=== PATIENT | female | born 1940 | race Caucasian/White ===

== ENCOUNTER 2017-04-30 13:46 | Outpatient (CLI) | payer MEDICARE, BC ==
[2017-04-30 15:15] LABS: #Eosinphils 0.1 thou/uL (0.0-0.7); #Lymphocytes 1.1 thou/uL (1.20-3.40); #Monocytes 0.3 thou/uL (0.11-0.59); #Neutrophils 5.7 thou/uL (1.40-6.50); %Basophils 0.2 % (0.0-1.0); %Eosinophils 1.1 % (0.0-10.0); %Lymphocytes 14.9 % (21.0-51.0); %Monocytes 4.1 % (0.0-10.0); %Neutrophils 79.7 % (42.0-75.0); Mean Corpuscular HGB CONC 32.9 g/dL (32.0-36.0); Mean Corpuscular Hemoglobin 31.8 pg (27.0-31.0); Mean Corpuscular Volume 96.7 fl (81.0-99.0); Mean Platelet Volume 6.9 fL (7.4-10.4); Platelet Count 248 thou/uL (130-400); RBC Distribution Width 12.5 % (11.5-14.5); Red Blood Cell (RBC) Count 4.08 mill/uL (4.20-5.40); White Blood Cell (WBC) Count 7.1 thou/uL (4.8-10.8)
[2017-04-30 15:22] LABS: INR-International Normal Ratio 1.1
[2017-04-30 15:23] LABS: PTT 33.8 SEC (22.9-36.1)
[2017-04-30 15:41] LABS: Anion Gap 13 mmol/L (10-20); BUN (Urea Nitrogen) 17 mg/dL (9.8-20.1); Calc. Creatinine Clearance 0 mL/min (70-130); Calcium 9.1 mg/dL (7.8-10.44); Carbon Dioxide 24 mmol/L (23-31); Chloride 108 mmol/L (98-107); Estimated GFR-MDRD 45; Glucose 128 mg/dL (83-110); Potassium 4.6 mmol/L (3.5-5.1); Sodium 140 mmol/L (136-145)
--- NOTE | 2017-04-30 15:42 | RAD ---
PA AND LATERAL CHEST: History: Pre-operative evaluation. FINDINGS: Comparison is made with exam of 02-12-17. The heart size is normal. The lungs are expanded without focal areas of consolidation, pneumothorax o r pleural effusions. There are degenerative changes in the spine. Left shoulder arthroplasty remains in place. IMPRESSION: Stable exam. No acute process. POS: [facility]
[2017-04-30 15:51] LABS: Bilirubin Negative (Negative); Blood, Urine Negative (Negative); Clarity CLEAR (Clear); Glucose, Urine (Dipstick) Negative (Negative); Leukocyte Negative (Negative); Nitrite Negative (Negative); Protein, Urine (Dipstick) Negative (Neg-Trace); Specific Gravity, Urine 1.019 (1.002-1.036)
[2017-04-30 15:56] LABS: Bacteria/HPF None Seen HPF (None Seen); Hyaline Casts/LPF 0-3 HYALINE CAST LPF (0-3 Hyaline); RBC/HPF 0-3 HPF (0-3); Squamous Epithelial 0-3 HPF (0-3); WBC/HPF None Seen HPF (0-3)
--- NOTE | 2017-05-08 19:33 | EKG ---
Test Reason : Blood Pressure : / mmHG Vent. Rate : 057 BPM Atrial Rate : 057 BPM P-R Int : 180 ms QRS Dur : 080 ms QT Int : 422 ms P-R-T Axes : 048 075 058 degrees QTc Int : 410 ms Sinus bradycardia with Premature supraventricular complexes Septal infarct , age undetermined Abnormal ECG No previous ECGs available Confirmed by KERVIN CH (2) on 05/08/2017 7:33:01 PM Referred By: ELSY Confirmed By:KERVIN CH
== END 2017-04-30 13:47 | disposition home or self-care (01) ==
LOC: LABBT 13:46
PROVIDERS: ATTEND Orthopaedic Surgery
DX: Z01.818 Encounter for other preprocedural examination (principal); M17.11 Unilateral primary osteoarthritis, right knee
CPT/HCPCS: 71046; 80048; 81001; 85025; 85610; 85730; 86850; 86900; 86901; 87081; 93005; 93010

== ENCOUNTER 2017-05-06 06:29 | Inpatient (IN) | payer MEDICARE, BC ==
[2017-04-30 14:07] VITALS: BMI 21.8
[2017-05-06] MEDS ORDERED: CEFAZOLIN/Water 2 GM/20 ML SYRINGE ONE ×2 (07:19→16:34)
[2017-05-06] MEDS ORDERED: Tranexamic Acid 1,000 MG/100 ML BAG ONE ×2 (07:19→11:07)
[2017-05-06] MEDS ORDERED: Fentanyl 100 MCG/2 ML VIAL ONE ×3 (08:09→11:54)
[2017-05-06] MEDS ORDERED: Ropivacaine 0.2% HCl/PF 20 ML ONE (08:09)
[2017-05-06] MEDS ORDERED: Midazolam HCl 2 mg/2 ml Vial ONE (08:09)
[2017-05-06] MEDS ORDERED: traMADol HCl 50 MG TAB PO PRN ×3 (08:38→08:44)
[2017-05-06] MEDS ORDERED: Promethazine HCl 25 MG/ML VIAL IM PRN ×2 (08:38→08:44)
[2017-05-06] MEDS ORDERED: Ondansetron HCl/PF 4 MG/2 ML Vial IVP PRN ×2 (08:38→08:44)
[2017-05-06] MEDS ORDERED: Ketorolac Tromethamine 30 MG/ML VIAL IVP PRN (08:38)
[2017-05-06] MEDS ORDERED: Zolpidem Tartrate 5 MG TAB PO PRN ×2 (08:38→08:44)
[2017-05-06] MEDS ORDERED: Ropivacaine HCl/PF 250 ML in Premix Bag 1 BAG NERVE BLCK SCH (08:38)
[2017-05-06] MEDS ORDERED: Fentanyl 100 MCG/2 ML VIAL IV PRN (08:40)
[2017-05-06] MEDS ORDERED: diphenhydrAMINE 25 MG CAP PO PRN (08:44)
[2017-05-06] MEDS ORDERED: Acetaminophen 325 MG TAB PO PRN (08:44)
[2017-05-06] MEDS ORDERED: Fentanyl 100 MCG/2 ML VIAL SLOW IVP PRN ×2 (08:44)
[2017-05-06] MEDS ORDERED: Tranexamic Acid 1,000 MG in Sodium Chloride 0.9% 100 ML IVPB SCH (08:45)
[2017-05-06] MEDS ORDERED: Non-Formulary Item 1 EACH (Budesonide-Formoterol [Symbicort 80-4.5] 2 PUFF) INH SCH (09:00)
[2017-05-06] MEDS ORDERED: Aspirin 81 mg Enteric Coated Tablet PO SCH (09:00)
--- NOTE | 2017-05-06 12:52 | OP ---
PREOPERATIVE DIAGNOSIS: Degenerative joint disease of the right knee. POSTOPERATIVE DIAGNOSIS: Degenerative joint disease of the right knee. SURGEON: Singh Magaña M.D. SLOT SERVICE SPECIALIST: Klaus Alex PA-C. BLOOD LOSS: Minimal. SPECIMEN: None. DRAINS: None. COMPLICATIONS: None. IMPLANTS USED: [employer] 4 femur, 4 tibia, 11 mm CSX3 polyethylene, and A29. PROCEDURE IN DETAIL: After informed consent was obtained in the preoperative holding area. The kingsley ent was taken to the operative suite where general anesthesia was induced. Once adequate level of ge neral anesthesia was obtained, the patient was positioned and a well-padded tourniquet was placed jocelyn und the right proximal thigh. The right lower extremity was then prepped and draped in the usual lis rile fashion. Prior to exsanguination, a time out was called and all members of the surgical team ag anthony upon site, surgeon, and patient. The extremity was then exsanguinated and the tourniquet was ra ised. A midline longitudinal incision was then made directly over the patella extending two fingerbr eadths above the superior pole of the patella and two fingerbreadths inferior to the inferior patella r pole of the patella. Deeper subcutaneous layers were dissected sharply and local bleeding was cont rolled with Bovie electrocautery. A quad tendon longitudinal split was then made sharply and a media n parapatellar arthrotomy was carried out both sharp and with Bovie electrocautery, carried down to o ne fingerbreadth medial to the tibial tubercle. The knee was then placed into flexion and the patell a was everted nicely, and a copious fat pad ectomy was performed allowing for greater exposure of the tibia. The computer-assisted distal femoral fiducial was then placed and pinned firmly, and the dis daria femoral cutting guide was pinned firmly into place. The oscillating saw was then used to remove the appropriate amount of bone. The 4-in-1 cutting block was then placed on the distal femur and the oscillating saw was used to remove the appropriate amount of bone off of the anterior, posterior, an d chamfer cuts. After completion of bone cuts, the anterior cruciate ligament was resected sharply a nd the posterior cruciate ligament retractor was placed and the tibia was subluxed for better exposur e. Partial meniscectomies were carried out, and the tibial computer-assisted fiducial was pinned, an d the cutting guide was placed. Oscillating saw was then used to remove the bone with Hohmann retrac tors used to take care and protect the collateral ligaments. After the tibial resection was performe d, a laminar retail mortgage banker was placed in between the freshened bone cuts. The knee placed at 90 degrees a nd further bilateral meniscectomies were carried out, and the curved osteotome and curettage was used to remove any excess bone spurs in the posterior compartment. Exparel was then injected into the po sterior capsule, arcelia-articular synovia, pre-patella synovia, and musculature surrounding the capsule . The trial femoral component, tibial baseplate were placed with the appropriate polyethylene trial insert with an appropriate polyethylene spacer and patellar button. The knee was taken through full range of motion with flexion and extension from 0-90 degrees and patellar broach squarely in the tro chlea without any squinting or subluxation noted. The knee was also stable to varus and valgus stres sing at 0, 15, 45, and 90 degrees of flexion. The drawer was negative. All trial components were the n removed and the keel punch was used to provide the appropriate defect in the tibia with a mallet. The freshened bone cuts were copiously irrigated with pulsatile lavage of about 1-1/2 liters to remov e all excess debris. The freshened bone cuts were then dried and with suction and lap sponge. The k nee was placed in flexion and retractors were placed to provide access to all bone cuts. Tobramycin impregnated methyl methacrylate cement was then placed on the freshened bone cuts and implants which were malleted firmly into place. Curettage and [place] elevators were used to remove any excess bone c ement. The knee was placed into full extension and the patellar button was placed under compression, and the cement was allowed to cure. Once completed, the components were again taken through full ra nge of motion and copious irrigation of the knee was carried out with another liter of normal saline. All components were inspected fully with full range of motion and varus and valgus stressing. There was no laxity noted and full extension was observed clinically. Primary closure was accomplished wi th #2 interrupted Vicryl stitch of the arthrotomy defect. This was oversewn with a #2 running Quill barbed stitch. The gravitational platelet system was then injected into the arthrotomy prior to clos ure. The subcutaneous layer was then closed with a running 0 barbed Monocryl stitch and skin closure accomplished with a running subcuticular 3-0 Monocryl barbed Quill stitch and augmented with cement on the skin. Tourniquet was lowered. Good spontaneous return of distal pulses was noted clinically and a sterile dressing was applied to the incision. The procedure was terminated without any complic ations. The patient was awakened in the operative suite and the tourniquet was removed, and the kingsley ent was taken to the recovery room in stable condition.
--- NOTE | 2017-05-06 13:23 | RAD ---
RIGHT KNEE TWO VIEWS: HISTORY: Arthritis. Right knee replacement. FINDINGS: Total knee prosthesis is in place. No perihardware lucency is apparent. There is soft tissue gas in the suprapatellar bursa and anterior soft tissues. IMPRESSION: Right knee prosthesis is in good radiographic position. POS: [facility]
[2017-05-06] MEDS ORDERED: Ropivacaine 0.5% HCl/PF (150 MG/30 ML VIAL) ONE (14:58)
[2017-05-06] MEDS ORDERED: CEFAZOLIN/Water 2 GM/20 ML SYRINGE SLOW IVP SCH ×2 (15:00→19:00)
[2017-05-06] MEDS ORDERED: ePHEDrine/0.9% NaCl/PF SYRINGE 50 mg/10 ml ONE (15:39)
[2017-05-06] MEDS ORDERED: Ondansetron HCl/PF 4 MG/2 ML Vial ONE (15:39)
[2017-05-06] MEDS ORDERED: Dexamethasone 20 MG/5 ML VIAL ONE (15:39)
[2017-05-06] MEDS ORDERED: Propofol 200 MG/20 ML VIAL ONE (15:39)
[2017-05-06] MEDS: Sodium Chloride 0.9% 1,000 ML IV SCH ×2 (19:59→20:30)
[2017-05-06] MEDS: Atorvastatin Calcium 10 MG TAB PO SCH (20:22)
[2017-05-06] MEDS: Montelukast Sodium 10 mg Tablet PO SCH (20:22)
[2017-05-06] MEDS: Mirtazapine 15 MG TAB PO SCH (20:23)
[2017-05-06] MEDS: Aspirin 325 MG TAB PO SCH ×2 (20:23)
[2017-05-06] MEDS: Ferrous Gluconate 324 MG TAB PO SCH ×2 (20:24)
[2017-05-06] MEDS: Senokot S 8.6-50 MG TAB PO SCH ×2 (20:24)
[2017-05-06] MEDS: HYDROcodone/Acetaminophen 10/325 mg Tablet PO PRN (20:24)
[2017-05-06] MEDS: Amiodarone 200 MG TAB PO SCH (21:21)
[2017-05-06] MEDS: Lisinopril 5 MG TAB PO SCH (21:21)
[2017-05-06] MEDS: Estradiol 1 MG TAB PO SCH (21:21)
[2017-05-06] MEDS: Multivitamin W/ Minerals 1 TAB PO SCH (21:21)
[2017-05-06] MEDS: Fish Oil 1,000 MG CAP PO SCH (21:21)
[2017-05-06] MEDS: Mometasone/Formoterol 120 PUFF INHALER INH SCH (22:06)
[2017-05-07] MEDS: HYDROcodone/Acetaminophen 10/325 mg Tablet PO PRN ×4 (01:01→17:13)
[2017-05-07] MEDS: CEFAZOLIN/Water 2 GM/20 ML SYRINGE SLOW IVP SCH ×2 (01:01→11:37)
[2017-05-07 06:05] LABS: Hemoglobin 11.6 g/dL (12.0-16.0); Mean Corpuscular HGB CONC 32.8 g/dL (32.0-36.0); Mean Corpuscular Hemoglobin 32.1 pg (27.0-31.0); Mean Corpuscular Volume 97.8 fl (81.0-99.0); Mean Platelet Volume 6.6 fL (7.4-10.4); Platelet Count 220 thou/uL (130-400); RBC Distribution Width 12.7 % (11.5-14.5); White Blood Cell (WBC) Count 10.3 thou/uL (4.8-10.8)
[2017-05-07] MEDS: Levothyroxine Sodium 50 MCG TAB PO SCH (06:40)
[2017-05-07] MEDS: Sodium Chloride 0.9% 1,000 ML IV SCH ×2 (06:40→17:47)
[2017-05-07] MEDS: Mometasone/Formoterol 120 PUFF INHALER INH SCH ×2 (07:56→19:38)
[2017-05-07] MEDS: Calcium Carbonate + Vit D 1 TAB PO SCH (08:37)
[2017-05-07] MEDS: Aspirin 325 MG TAB PO SCH ×2 (08:37→20:27)
[2017-05-07] MEDS: Estradiol 1 MG TAB PO SCH (08:37)
[2017-05-07] MEDS: Lisinopril 5 MG TAB PO SCH (08:37)
[2017-05-07] MEDS: Amiodarone 200 MG TAB PO SCH (08:37)
[2017-05-07] MEDS: Senokot S 8.6-50 MG TAB PO SCH ×2 (08:37→20:27)
[2017-05-07] MEDS: Ferrous Gluconate 324 MG TAB PO SCH ×2 (08:38→20:27)
[2017-05-07] MEDS: Fish Oil 1,000 MG CAP PO SCH (08:38)
[2017-05-07] MEDS: Multivitamin W/ Minerals 1 TAB PO SCH (08:38)
[2017-05-07] MEDS ORDERED: Ropivacaine 0.2% 550 ML 550 ML NERVE BLCK SCH (11:16)
[2017-05-07] MEDS: Atorvastatin Calcium 10 MG TAB PO SCH (20:27)
[2017-05-07] MEDS: Mirtazapine 15 MG TAB PO SCH (20:27)
[2017-05-07] MEDS: Montelukast Sodium 10 mg Tablet PO SCH (20:27)
--- NOTE | 2017-05-07 21:22 | PDOC.PN ---
- Subjective Encounter Start Date: 05/07/17 Encounter Start Time: 21:20 Patient seen and examined. No new complaints. No overnight events. Consult for Med mngt. - Objective MAR Reviewed: Yes Vital Signs & Weight: Vital Signs (12 hours) Temp Pulse Resp BP Pulse Ox 05/07/17 20:00 98.0 F 60 16 159/64 H 97 05/07/17 19:38 62 18 96 05/07/17 17:34 98.1 F 62 16 180/66 H 96 05/07/17 12:56 98.1 F 60 16 172/66 H 97 Weight Admit Weight 125 lb Weight 125 lb I&O: 05/06/17 05/07/17 05/08/17 06:59 06:59 06:59 Intake Total 2060 01 Balance 2060 01 Result Diagrams: 05/07/17 05:21 EKG Reviewed by me: Yes (SB) Phys Exam - Physical Examination Constitutional: NAD Respiratory: no wheezing, no rhonchi Cardiovascular: RRR, no rub Gastrointestinal: soft, non-tender, positive bowel sounds Musculoskeletal: no edema Neurological: moves all 4 limbs Dx/Plan - Plan DVT proph w/SCDs IMPRESSION: 1. HTN 2. HLD 3. Par. Afib on anticoagulation 4. CKD 2 5. 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 h/o Colon Ca/Hearing deficits/Mild int Asthma PLAN: * Eliquis on hold * On ASA * Cont Amiodarone * Cont current meds as below * Will follow. Thank you for this consultation. * Full code. DPOA - self/family Review of Systems - Review of Systems Respiratory: negative: Cough, Dry, Shortness of Breath, Hemoptysis, SOB with Excertion, Pleuritic Pain, Sputum, Wheezing Cardiovascular: negative: chest pain, palpitations, orthopnea, paroxysmal nocturnal dyspnea, edema, light headedness - Medications/Allergies Allergies/Adverse Reactions: Allergies Allergy/AdvReac Type Severity Reaction Status Date / Time No Known Allergies Allergy Verified 04/30/17 14:07 Medications: Current Medications Acetaminophen (Tylenol) 650 mg PO Q4H PRN PRN Reason: HANSEN/ T > 101F; Mild Pain (1-3) Hydrocodone Bitart/Acetaminophen ([place] 10/325) 1 tab PO Q4H PRN PRN Reason: Pain (1-3) Last Admin: 05/07/17 17:13 Dose: 1 tab Hydrocodone Bitart/Acetaminophen ([place] 10/325) 2 tab PO Q4H PRN PRN Reason: PAIN (4-6) Last Admin: 05/07/17 11:36 Dose: 2 tab Amiodarone HCl (Cordarone) 200 mg PO DAILY [facility] Last Admin: 05/07/17 08:37 Dose: 200 mg Aspirin (Aspirin) 325 mg PO BID [facility] Last Admin: 05/07/17 20:27 Dose: 325 mg Atorvastatin Calcium (Lipitor) 10 mg PO HS [facility] Last Admin: 05/07/17 20:27 Dose: 10 mg Calcium/Vitamin D (Caltrate 600 + Vit D) 1 tab PO DAILY [facility] Last Admin: 05/07/17 08:37 Dose: 1 tab Diphenhydramine HCl (Benadryl) 25 mg PO Q6H PRN PRN Reason: Itching Estradiol (Estrace) 1 mg PO DAILY [facility] Last Admin: 05/07/17 08:37 Dose: 1 mg Fentanyl (Sublimaze) 50 mcg IV Q1H PRN PRN Reason: BT PAIN Last Admin: 05/07/17 13:27 Dose: 50 mcg Fentanyl (Sublimaze) 50 mcg SLOW IVP Q30MIN PRN PRN Reason: Moderate Pain (4-6) Fentanyl (Sublimaze) 100 mcg SLOW IVP Q1H PRN PRN Reason: Severe Pain (7-10) Ferrous Gluconate (Fergon) 324 mg PO BID [facility] Last Admin: 05/07/17 20:27 Dose: 324 mg Fish Oil (Fish Oil) 2,000 mg PO DAILY [facility] Last Admin: 05/07/17 08:38 Dose: 2,000 mg Sodium Chloride (Normal Saline 0.9%) 1,000 mls @ 100 mls/hr IV .Q10H [facility] Last Admin: 05/07/17 17:47 Dose: Not Given Ropivacaine (Ropivacaine 0.2% 550 Ml) 550 mls @ 0 mls/hr NERVE BLCK INF [facility] PRN Reason: As Directed Last Admin: 05/07/17 13:20 Dose: 550 mls Iron/Minerals/Multivitamins (Theragran M) 1 tab PO DAILY [facility] Last Admin: 05/07/17 08:38 Dose: 1 tab Ketorolac Tromethamine (Toradol) 15 mg IVP Q6H PRN PRN Reason: Moderate Pain (4-6) Stop: 05/09/17 08:39 Levothyroxine Sodium (Synthroid) 50 mcg PO 0600 [facility] Last Admin: 05/07/17 06:40 Dose: 50 mcg Lisinopril (Zestril) 5 mg PO DAILY [facility] Last Admin: 05/07/17 08:37 Dose: 5 mg Mirtazapine (Remeron) 15 mg PO HS [facility] Last Admin: 05/07/17 20:27 Dose: 15 mg Mometasone Furoate/Formoterol Fumar (Dulera 100 Mcg/5 Mcg Inhaler) 2 puff INH BID-RT [facility] Last Admin: 05/07/17 19:38 Dose: 2 puff Montelukast Sodium (Singulair) 10 mg PO QPM [facility] Last Admin: 05/07/17 20:27 Dose: 10 mg Ondansetron HCl (Zofran) 4 mg IVP Q6H PRN PRN Reason: Nausea/Vomiting Promethazine HCl (Phenergan) 12.5 mg IM Q4H PRN PRN Reason: Nausea/Vomiting Senna/Docusate Sodium (Senokot S) 2 tab PO BID [facility] Last Admin: 05/07/17 20:27 Dose: 2 tab Sodium Chloride (Flush - Normal Saline) 10 ml IVF PRN PRN PRN Reason: Saline Flush Tramadol HCl (Ultram) 100 mg PO Q6H PRN PRN Reason: Mild Pain (1-3) Zolpidem Tartrate (Ambien) 5 mg PO HSPRN PRN PRN Reason: Insomnia
[2017-05-08] MEDS: Sodium Chloride 0.9% 1,000 ML IV SCH ×2 (00:16→13:47)
[2017-05-08 05:45] LABS: Hemoglobin 12.2 g/dL (12.0-16.0); Mean Corpuscular Hemoglobin 32.2 pg (27.0-31.0); Mean Corpuscular Volume 97.4 fl (81.0-99.0); Mean Platelet Volume 6.7 fL (7.4-10.4); Platelet Count 223 thou/uL (130-400); RBC Distribution Width 12.6 % (11.5-14.5); Red Blood Cell (RBC) Count 3.79 mill/uL (4.20-5.40); White Blood Cell (WBC) Count 12.1 thou/uL (4.8-10.8)
[2017-05-08] MEDS: Levothyroxine Sodium 50 MCG TAB PO SCH (05:51)
[2017-05-08] MEDS: HYDROcodone/Acetaminophen 10/325 mg Tablet PO PRN ×2 (06:28→14:31)
[2017-05-08] MEDS: Mometasone/Formoterol 120 PUFF INHALER INH SCH (08:44)
[2017-05-08] MEDS: Fish Oil 1,000 MG CAP PO SCH (09:43)
[2017-05-08] MEDS: Senokot S 8.6-50 MG TAB PO SCH (09:43)
[2017-05-08] MEDS: Estradiol 1 MG TAB PO SCH (09:43)
[2017-05-08] MEDS: Amiodarone 200 MG TAB PO SCH (09:44)
[2017-05-08] MEDS: Lisinopril 5 MG TAB PO SCH (09:44)
[2017-05-08] MEDS: Multivitamin W/ Minerals 1 TAB PO SCH (09:44)
[2017-05-08] MEDS: Aspirin 325 MG TAB PO SCH (09:44)
[2017-05-08] MEDS: Ferrous Gluconate 324 MG TAB PO SCH (09:44)
[2017-05-08] MEDS: Calcium Carbonate + Vit D 1 TAB PO SCH (09:45)
[2017-05-08 11:51] VITALS: BP 156/68; TEMP 98.3
== END 2017-05-08 15:23 | disposition home or self-care (01) | DRG 470 ==
LOC: SDC 06:29 → SJJU 08:44 → EDSTATUS 14:00
PROVIDERS: ADMIT Orthopaedic Surgery; ATTEND Orthopaedic Surgery
PROC: 0SRC0J9 Replacement of Right Knee Joint with Synthetic Substitute, Cemented, Open Approach (ICD-10-PCS; principal; 2017-05-06)
PROC: 3E0T3BZ Introduction of Anesthetic Agent into Peripheral Nerves and Plexi, Percutaneous Approach (ICD-10-PCS; 2017-05-06)
DX: M17.11 Unilateral primary osteoarthritis, right knee (principal); I48.0 Paroxysmal atrial fibrillation; I34.1 Nonrheumatic mitral (valve) prolapse; Z79.01 Long term (current) use of anticoagulants; Z85.038 Personal history of other malignant neoplasm of large intestine; E78.5 Hyperlipidemia, unspecified; J45.20 Mild intermittent asthma, uncomplicated; I12.9 Hypertensive chronic kidney disease with stage 1 through stage 4 chronic kidney disease, or unspecified chronic kidney disease; N18.2 Chronic kidney disease, stage 2 (mild); H91.90 Unspecified hearing loss, unspecified ear
CPT/HCPCS: 36415; 85027; A4306; C1713; C1776; G8978-GP-CK; G8979-GP-CJ; J1100; J1885; J2250; J2405; J2704; J2795; J3010; J3370